=== PATIENT | female | born 1985 | race African-American/Black ===

== ENCOUNTER 2021-04-06 02:37 | Emergency (ER) | payer MEDICAID ==
[~2021-04-06] VITALS: Ht 175.3 cm; Wt 64.0 kg
[2021-04-06 02:42] VITALS: BP 138/62
[2021-04-06] MEDS ORDERED: ACETAMINOPHEN 325MG TABLET PO ONE (03:30)
[2021-04-06] MEDS ORDERED: CLIN300C12 MT (04:03)
[2021-04-06] MEDS ORDERED: TETANUS, DIPHTHERIA, PERTUSSIS VAC/PF 0.5ML (>7YR OLD) IM ONE (04:15)
== END 2021-04-07 07:55 | disposition home or self-care (01) ==
LOC: ER 02:58
DX: S51.852A Open bite of left forearm, initial encounter (principal); Y04.1XXA Assault by human bite, initial encounter; Y93.89 Activity, other specified; Y92.89 Other specified places as the place of occurrence of the external cause; Y99.8 Other external cause status
CPT/HCPCS: 90471; 90715; 99283; Z7610

== ENCOUNTER 2022-09-28 15:27 | Inpatient (IN) | payer OTHER ==
[~2022-09-28] VITALS: Ht 175.3 cm; Wt 68.9 kg
[~2022-09-28 15:27] MED LIST: DOXY100C5 PO; IBUP-2028 PO
[2022-09-28] MEDS ORDERED: DAPTOMYCIN 250 MG in SODIUM CHLORIDE 0.9% 50 ML IV STA (18:42)
[2022-09-28] MEDS ORDERED: SODIUM CHLORIDE 0.9% 1000ML BAG (SEPSIS BOLUS) IV ONE (18:45)
[2022-09-28] MEDS ORDERED: DAPTOMYCIN IV SCH (19:00)
[2022-09-28] MEDS ORDERED: SODIUM CHLORIDE 0.9% IV SCH (19:00)
[2022-09-28 19:42] LABS: BASOPHILS % 0.4 % (0.0-2.0); EOSINOPHILS % 2.4 % (0.0-5.0); HEMOGLOBIN. 11.5 g/dL (12.0-16.0); LYMPHOCYTES % 30.9 % (20.0-50.0); MEAN CORPUSCULAR HEMOGLOBIN 29.7 pg (28.0-32.0); MEAN CORPUSCULAR VOLUME 90.4 fL (81.0-99.0); MEAN PLATELET VOLUME 7.8 fl (7.4-10.4); MONOCYTES % 10.1 % (2.0-8.0); NEUTROPHILS % 56.2 % (40.0-76.0); PLATELET 480 x1000/uL (130-400); RED BLOOD CELL COUNT 3.88 mill/uL (4.2-5.4)
[2022-09-28 19:45] LABS: CHLORIDE 105 mEq/L (98-107)
[2022-09-28 20:03] LABS: CREATINE KINASE 150 IU/L (26-192); HCG SCREEN NEGATIVE
[2022-09-29] VITALS: BP 128/56
[2022-09-29] MEDS: DOXYCYCLINE HYCLATE 100MG CAPSULE PO SCH ×2 (01:30→10:47)
[2022-09-29 06:54] VITALS: BP 110/77
[2022-09-29 08:00] VITALS: BP 136/79
[2022-09-29] MEDS ORDERED: DAPTOMYCIN 250 MG in SODIUM CHLORIDE 0.9% 50 ML IV SCH (08:00)
== END 2022-09-29 12:20 | disposition left against medical advice (07) | DRG 206 ==
LOC: ER 15:27 → MICUSO 22:20 → EDBEDREQ 22:35 → EDBEDREQTM 22:35 → ENRESERV 23:31 → 7WST 09-29 00:15
PROVIDERS: ADMIT Internal Medicine; ATTEND Internal Medicine
PROC: 05HY33Z Insertion of Infusion Device into Upper Vein, Percutaneous Approach (ICD-10-PCS; principal; 2022-09-29)
PROC: B54MZZA Ultrasonography of Right Upper Extremity Veins, Guidance (ICD-10-PCS; 2022-09-29)
DX: T82.524A Displacement of infusion catheter, initial encounter (principal); E44.0 Moderate protein-calorie malnutrition; I38 Endocarditis, valve unspecified; I10 Essential (primary) hypertension; Z53.29 Procedure and treatment not carried out because of patient's decision for other reasons; F41.9 Anxiety disorder, unspecified; Z87.891 Personal history of nicotine dependence; Z88.0 Allergy status to penicillin; Z91.012 Allergy to eggs; Z68.22 Body mass index [BMI] 22.0-22.9, adult; Z91.02 Food additives allergy status; Z91.013 Allergy to seafood; Y71.2 Prosthetic and other implants, materials and accessory cardiovascular devices associated with adverse incidents; Y92.89 Other specified places as the place of occurrence of the external cause; J44.9 Chronic obstructive pulmonary disease, unspecified
CPT/HCPCS: 36415; 36573; 71045; 80053; 82550; 83605; 84145; 84703; 85025; 93005; 99285; C1725; C1760; J0878; J7030

== ENCOUNTER 2025-07-01 06:36 | Emergency (ER) | payer MEDICAID ==
[~2025-07-01] VITALS: Ht 177.8 cm; Wt 69.0 kg
[2025-07-01 06:38] VITALS: TEMP 98.1; O2SAT 100
[2025-07-01] MEDS ORDERED: ACET-2708 MT (10:13)
[2025-07-01 10:29] VITALS: BP 108/79; PULSE 98; RESP 12; O2SAT 98
== END 2025-07-01 10:42 | disposition home or self-care (01) ==
LOC: ER 06:36
DX: S00.83XA Contusion of other part of head, initial encounter (principal); F12.90 Cannabis use, unspecified, uncomplicated; Z91.0120 Allergy to eggs, unspecified; Z91.013 Allergy to seafood; X58.XXXA Exposure to other specified factors, initial encounter; Y93.89 Activity, other specified; Y92.89 Other specified places as the place of occurrence of the external cause; Y99.8 Other external cause status; Z88.0 Allergy status to penicillin
CPT/HCPCS: 70486; 81025; 99284